=== PATIENT | male | born 1960 | race Caucasian/White ===

== ENCOUNTER → 2016-07-04 | Outpatient (CLI) | payer BC | DX: Z48.812 Encounter for surgical aftercare following surgery on the circulatory system (principal); Z95.1 Presence of aortocoronary bypass graft ==

== ENCOUNTER → 2016-08-24 | Outpatient (CLI) | payer BC ==
[2016-08-24 09:21] LABS: RED BLOOD COUNT 5.5 M/UL (4.20-5.50); WHITE BLOOD COUNT 9.1 K/UL (4.5-11.0)
[2016-08-24 09:39] LABS: BUN/CREATININE RATIO 19 (0-10)
== END ==
LOC: LAB 07:53
PROVIDERS: Internal Medicine
DX: I10 Essential (primary) hypertension (principal); M10.9 Gout, unspecified; E78.2 Mixed hyperlipidemia; N40.1 Benign prostatic hyperplasia with lower urinary tract symptoms; L40.9 Psoriasis, unspecified
CPT/HCPCS: 36415; 80048; 80061; 80076; 84153; 84443; 84550; 85025

== ENCOUNTER → 2020-06-22 | Outpatient (CLI) | payer BC | LOC: EXRD 14:15 | DX: I65.29 Occlusion and stenosis of unspecified carotid artery (principal) | CPT/HCPCS: 93880 ==

== ENCOUNTER → 2020-07-06 | Outpatient (CLI) | payer BC | LOC: CT 13:44 | DX: I65.23 Occlusion and stenosis of bilateral carotid arteries (principal); I65.02 Occlusion and stenosis of left vertebral artery | CPT/HCPCS: 70498; 82565; Q9967 ==

== ENCOUNTER → 2020-10-28 | Outpatient (CLI) | payer BC | LOC: EROP 08:03 | DX: Z01.812 Encounter for preprocedural laboratory examination (principal); Z20.822 Contact with and (suspected) exposure to COVID-19 | CPT/HCPCS: U0003 ==